=== PATIENT | female | born 1960 | race Caucasian/White ===

== ENCOUNTER 2017-08-03 02:17 | Emergency (ER) | payer MEDICARE, MEDICAID ==
[~2017-08-03] VITALS: Ht 154.9 cm; Wt 49.0 kg
[2017-08-03 03:28] LABS: Urine Bilirubin Negative (Negative); Urine Blood Negative /uL (Negative); Urine Color Yellow (Yellow); Urine Glucose Normal (Normal); Urine Ketone Negative (Negative); Urine Nitrite Negative (Negative); Urine RBC <1 /hpf (0 - 4); Urine Squamous Epithelial Cell FEW /hpf (<5); Urine Urobilinogen Normal (Negative)
[2017-08-03 06:31] LABS: Basophils # (auto) 0.1 uL; Eosinophils # (auto) 0.1 uL; Eosinophils % (auto) 0.7 % (0.0-7.0); Hemoglobin 13.5 g/dL (12.2-16.2); Lymphocytes % (auto) 7.2 % (10.0-50.0); Mean Corpuscular Hemoglobin 33.8 pg (28.0-32.0); Mean Corpuscular Hgb Conc. 33.8 g/dL (32.0-36.0); Mean Corpuscular Volume 100.1 fL (80.0-100.0); Mean Platelet Volume 6.2 fL (6.9-10.8); Monocytes # (auto) 1.3 uL; Monocytes % (auto) 9.2 % (0.0-12.0); Neutrophils # (auto) 11.8 uL; Neutrophils % (auto) 81.9 % (37.0-80.0); Platelet Count (auto) 374 10^3/uL (140-450); Red Cell Distribution Width 13.2 % (11.8-14.3); White Blood Cell 14.4 10^3/uL (4.4-10.8)
[2017-08-03 06:54] LABS: Albumin 3.1 g/dL (3.4-5.0); BUN/Creatinine Ratio 18.6; Bilirubin, Total 0.3 mg/dL (0.2-1.0); Calcium 8.4 mg/dL (8.5-10.1); Potassium 4.1 mmol/L (3.5-5.1); Total Protein 7.3 g/dL (6.4-8.2)
[2017-08-03] MEDS ORDERED: SODIUM CHLORIDE 0.9% 1,000 ML IV ONE (08:10)
[2017-08-03] MEDS ORDERED: NALBUPHINE HCL 10 MG/1ml INJECTION IV ONE ×3 (08:15→13:15)
[2017-08-03] MEDS ORDERED: PROMETHAZINE HCL 25 MG/ML 1ML IV PRN (08:15)
[2017-08-03 08:36] LABS: Magnesium 1.9 mg/dL (1.6-2.6)
[2017-08-03 08:40] LABS: INR 0.98 (0.9-1.15); Partial Thromboplastin Time 34.2 sec (22.64-33.71); Prothrombin Time 10.7 sec (9.37-12.3)
[2017-08-03 13:20] VITALS: BP 144/86
== END 2017-08-03 13:43 | disposition short-term general hospital (02) ==
LOC: ER 02:20
DX: K80.20 Calculus of gallbladder without cholecystitis without obstruction (principal); I10 Essential (primary) hypertension; R19.00 Intra-abdominal and pelvic swelling, mass and lump, unspecified site; I31.3 Pericardial effusion (noninflammatory); J90 Pleural effusion, not elsewhere classified; F17.210 Nicotine dependence, cigarettes, uncomplicated; Z68.20 Body mass index [BMI] 20.0-20.9, adult; E44.1 Mild protein-calorie malnutrition
CPT/HCPCS: 36415; 74022; 74176; 80053; 81001; 83690; 83735; 85025; 85610; 85730; 93005; 96361; 96374; 96375; 96376; 99285; J2300; J2550; J7030

== ENCOUNTER 2022-01-22 17:00 | Emergency (ER) | payer OTHER, MEDICAID ==
[~2022-01-22] VITALS: Ht 165.1 cm; Wt 49.9 kg
[2022-01-22 20:40] VITALS: BP 150/79
== END 2022-01-23 05:52 | disposition home or self-care (01) ==
LOC: ER 17:00 → EDBD 17:00 → ER 01-23 05:52
DX: S20.219A Contusion of unspecified front wall of thorax, initial encounter (principal); S00.81XA Abrasion of other part of head, initial encounter; Z90.710 Acquired absence of both cervix and uterus; V43.62XA Car passenger injured in collision with other type car in traffic accident, initial encounter; Y93.89 Activity, other specified; Y92.89 Other specified places as the place of occurrence of the external cause; Y99.8 Other external cause status
CPT/HCPCS: 71045; 93005